=== PATIENT | male | born 1950 | race Caucasian/White ===

== ENCOUNTER 2017-02-23 09:21 | Emergency (ER) | payer MEDICARE, OTHER ==
--- NOTE | 2017-02-23 10:59 | XRAY Preliminary Report ---
Exam: XR Foot 3 View RT IMPRESSION: Normal foot and ankle radiography. [facility] SITE ID: [id number]
--- NOTE | 2017-02-23 10:59 | XRAY Preliminary Report ---
Exam: XR Ankle 3 View LT IMPRESSION: Normal foot and ankle radiography. [facility] SITE ID: [id number]
--- NOTE | 2017-02-23 11:01 | XRAY Report ---
EXAM: LEFT FOOT AND ANKLE RADIOGRAPHY EXAM DATE: 02/23/2017 10:34 AM. CLINICAL HISTORY: Pain s/p fall. COMPARISON: None. TECHNIQUE: 6 views. FINDINGS: Bones: Normal. No fractures or bone lesions. Joints: Normal. No effusion. No subluxations. The ankle mortise is normally aligned. Soft Tissues: Normal. No soft tissue swelling. IMPRESSION: Normal foot and ankle radiography. [facility] Referring Provider Line: [phone] SITE ID: [id number]
--- NOTE | 2017-02-23 11:01 | XRAY Report ---
EXAM: LEFT FOOT AND ANKLE RADIOGRAPHY EXAM DATE: 02/23/2017 10:34 AM. CLINICAL HISTORY: Pain s/p fall. COMPARISON: None. TECHNIQUE: 6 views. FINDINGS: Bones: Normal. No fractures or bone lesions. Joints: Normal. No effusion. No subluxations. The ankle mortise is normally aligned. Soft Tissues: Normal. No soft tissue swelling. IMPRESSION: Normal foot and ankle radiography. [facility] Referring Provider Line: [phone] SITE ID: [id number]
--- NOTE | 2017-02-23 11:15 | ED Physician Documentation ---
PD HPI LOWER EXT INJURY - Stated complaint Stated Complaint: BILAT FOOT INJURY - Chief complaint Chief Complaint: Heent - History obtained from History obtained from: Patient - History of Present Illness PD HPI LOW EXT INJURY LOCATION: Right (toe), Left (ankle) Type of injury: Twist Timing - onset: Yesterday Worsened by: Other (weightbearing) - Additional information Additional information: The patient is a 66-year-old male who fell yesterday, twisting his left ankle and hyperextending his right second toe. He has been ambulatory since the incident occurred, but weightbearing exacerbates his pain. He denies any other injuries. His past medical history is significant for heart transplant and for renal insufficiency, with just 1 functioning kidney. Review of Systems Constitutional: denies: Fever Nose: denies: Congestion Cardiac: denies: Chest pain / pressure Respiratory: denies: Dyspnea GI: denies: Nausea, Vomiting Skin: denies: Rash Musculoskeletal: reports: Extremity pain (right second toe, and left ankle.). denies: Back pain Neurologic: denies: Focal weakness, Numbness PD PAST MEDICAL HISTORY - Past Medical History Cardiovascular: Hypertension, Other (heart transplant) : Renal insuffiency - Past Surgical History Cardiovascular: Other (heart transplant) - Present Medications Home Medications: Ambulatory Orders Medication Instructions Recorded Confirmed Home Medications Unobtainable 02/23/17 02/23/17 [HOME MEDICATIONS UNOBTAINABLE] - Allergies Allergies/Adverse Reactions: Allergies Allergy/AdvReac Type Severity Reaction Status Date / Time tacrolimus [From Prograf] Allergy Rash Verified 02/23/17 09:33 erythromycin base AdvReac causes Verified 02/23/17 09:33 very elevated blood levels heparin AdvReac over Verified 02/23/17 09:34 reaction PD ED PE NORMAL - Vitals Vital signs reviewed: Yes (hypertensive) - General General: Alert and oriented X 3, Well developed/nourished - HEENT HEENT: Atraumatic - Cardiac Cardiac: RRR - Respiratory Respiratory: No respiratory distress - Abdomen Abdomen: Other (rotund abdomen) - Derm Derm: No rash - Extremities Extremities: No edema, No calf tenderness / cord, Other (There is slight swelling with tenderness to palpation of the posterior aspect of the left lateral malleolus. There is no tenderness to palpation over the medial malleolus, the fifth metatarsal base, nor the proximal fibula. There is ecchymosis and tenderness to palpation at the base of the right second toe. There is no break in the integument. There is no tenderness to palpation over the metatarsals. Distal neurovascular is intact.) - Neuro Neuro: Alert and oriented X 3, No motor deficit, No sensory deficit Results - Vitals Vitals: Vital Signs - 24 hr 02/23/17 11:30 Temperature 36.4 C L Heart Rate 83 Respiratory 18 Rate Blood Pressure 175/107 H O2 Saturation 97 Oxygen O2 Source Room air - Rads (name of study) left ankle Radiology: Prelim report reviewed, EMP read contemporaneously, See rad report ( No acute bony abnormality.) right foot Radiology: Prelim report reviewed, EMP read contemporaneously, See rad report ( No acute bony abnormality.) PD MEDICAL DECISION MAKING - ED course Complexity details: reviewed results, re-evaluated patient, considered differential, d/w patient, d/w family ED course: The patient's presentation is significant for left ankle sprain and right second toe contusion. There is no evidence of bony abnormality on x-ray examination of the left ankle or the right foot. Treatment in the emergency department included administration of the ankle air splint. Because of his history of renal insufficiency, the patient does not take any anti-inflammatory medication. I discussed with him and his the expected course of injury, symptomatic treatment and outpatient follow-up, as well as potentially worrisome signs or symptoms that should prompt reevaluation in the emergency department. Departure - Departure Disposition: 01 Home, Self Care Clinical Impression: Left ankle sprain Qualifiers: Encounter type: initial encounter Involved ligament of ankle: calcaneofibular ligament Qualified Code(s): S93.412A - Sprain of calcaneofibular ligament of left ankle, initial encounter Toe contusion Qualifiers: Encounter type: initial encounter Toe: lesser toe Damage to nail status: with damage Laterality: right Qualified Code(s): S90.221A - Contusion of right lesser toe(s) with damage to nail, initial encounter Condition: Stable Instructions: ED Sprain Ankle W X Ray Comments: Keep your legs elevated as much the time as possible. Apply ice pack intermittently for the next 3 days. Use the air splint if it provides comfort. You can use Tylenol as needed for discomfort. Follow-up with your primary physician within 2 weeks. Call to schedule appointment. Return to the emergency department if you develop increasing pain or swelling, or otherwise worsening symptoms. Discharge Date/Time: 02/23/17 11:30
[2017-02-23 11:32] VITALS: BP 175/107
== END 2017-02-23 11:30 | disposition home or self-care (01) ==
LOC: ED 09:21
DX: S93.412A Sprain of calcaneofibular ligament of left ankle, initial encounter (principal); S90.221A Contusion of right lesser toe(s) with damage to nail, initial encounter; X50.1XXA Overexertion from prolonged static or awkward postures, initial encounter
CPT/HCPCS: 99283

== ENCOUNTER 2017-03-08 07:03 | Outpatient (CLI) | payer MEDICARE, OTHER ==
[2017-03-08 11:45] LABS: BILIRUBIN,URINE NEGATIVE (NEGATIVE); PH,URINE 6.5 PH (5.0-7.5)
[2017-03-08 11:46] LABS: UA w/ MICROSCOPIC CHARGE YES
[2017-03-08 11:52] LABS: CALCIUM 8.3 mg/dL (8.5-10.3); CREATININE 2.4 mg/dL (0.6-1.2); POTASSIUM 3.6 mmol/L (3.5-5.0)
[2017-03-08 12:05] LABS: UR CULTURE IF IND NOT INDICATED; WBC,URINE 0-3 /HPF (0-3)
== END 2017-03-08 07:04 | disposition home or self-care (01) ==
LOC: LAB.F 07:03
PROVIDERS: ATTEND Internal Medicine
DX: I10 Essential (primary) hypertension (principal)
CPT/HCPCS: 36415; 80048; 81001; 81003; 87086